=== PATIENT | female | born 1965 | race Caucasian/White ===

== ENCOUNTER 2017-06-09 06:49 | Emergency (ER) | payer OTHER ==
[~2017-06-09] VITALS: Ht 160 cm; Wt 45.4 kg
[~2017-06-09 06:49] MED LIST: METO-304 PO; OMEP20CA10 PO; PROC10TA PO
[2017-06-09 06:57] VITALS: BP_SYST 166
[2017-06-09] MEDS ORDERED: NACL 0.9% 1,000 ML IV ONE (07:31)
[2017-06-09 07:34] LABS: MEAN CORPUSCULAR HEMOGLOBIN 31 pg (27-31)
[2017-06-09 07:38] LABS: CALCIUM 10.3 mg/dL (8.4-11.0); CREATININE 0.89 mg/dL (0.55-1.30); POTASSIUM 4.4 mmol/L (3.5-5.1)
[2017-06-09 07:39] LABS: HEMOGLOBIN 15.9 g/dL (12.0-16.0); MEAN CORPUSCULAR HGB CONC 33 % (32-36); MEAN CORPUSCULAR VOLUME 94 fL (79.0-98.0); PLATELET COUNT (AUTO) 221 K/uL (130-430); RED BLOOD CELL COUNT(AUTO) 5.11 MIL/uL (4.2-6.2); RED CELL DISTRIBUTION WIDTH 14.6 % (9.0-15.0); WHITE BLOOD COUNT (AUTO) 11.5 K/uL (4.8-10.8)
[2017-06-09 07:42] LABS: ALBUMIN 4.6 g/dL (3.4-4.8); TOTAL BILIRUBIN 1.1 mg/dL (0.0-1.0)
[2017-06-09] MEDS ORDERED: ONDANSETRON HCL 4 MG/2 ML VIAL IVP ONE ×2 (08:15→10:45)
[2017-06-09] MEDS ORDERED: HYDROmorphone 1 MG INJ. 1 MG/ML AMPUL IVP ONE ×2 (08:15→10:00)
[2017-06-09 08:17] LABS: BASOPHILS % (MANUAL) 0 % (0-2); EOSINOPHILS % (MANUAL) 0 % (0-7); LYMPHOCYTES % (MANUAL) 12 % (20-46); MONOCYTES % (MANUAL) 2 % (0-11)
[2017-06-09] MEDS ORDERED: KETOROLAC TROMETHAMINE 60 MG/2 ML VIAL IM ONE (09:15)
[2017-06-09] MEDS ORDERED: hydrALAZINE HCL 20 MG/ML VIAL IVP ONE (10:00)
[2017-06-09 10:08] LABS: BILIRUBIN,URINE NEGATIVE (NEGATIVE); BLOOD, URINE 1+ (NEGATIVE); CLARITY/URINE CLEAR (CLEAR); COLOR,URINE YELLOW (YELLOW); GLUCOSE,URINE NEGATIVE (NEGATIVE); KETONES,URINE 2+ (NEGATIVE); LEUKOCYTE ESTERASE ,URINE NEGATIVE (NEGATIVE); NITRITE, URINE NEGATIVE (NEGATIVE); PROTEIN URINE TRACE (NEGATIVE); UROBILINOGEN,URINE 0.2 (0.2-1.0)
[2017-06-09 10:15] LABS: BACTERIA,URINE FEW /HPF (None Seen); MUCUS,URINE None Seen /LPF (None Seen); RBC,URINE 0-3 /HPF (0-3); WBC,URINE 0-3 /HPF (0-3)
[2017-06-09 11:14] VITALS: BP_SYST 167
== END 2017-06-09 11:14 | disposition home or self-care (01) ==
LOC: SED 06:49
DX: K58.8 Other irritable bowel syndrome (principal); F11.20 Opioid dependence, uncomplicated; R10.11 Right upper quadrant pain; I10 Essential (primary) hypertension; Z90.49 Acquired absence of other specified parts of digestive tract; Z88.8 Allergy status to other drugs, medicaments and biological substances
CPT/HCPCS: 36415; 76700; 80053; 81000; 83690; 85007; 85027; 96361; 96372; 96374; 96375; 96376; 99285; J0360; J1170; J1885; J2405; J7030

== ENCOUNTER 2018-05-11 07:32 | Inpatient (IN) | payer OTHER, BC ==
[~2018-05-11] VITALS: Ht 160 cm; Wt 46.3 kg
[2018-05-11 07:32] VITALS: BP_SYST 159
[~2018-05-11 07:32] MED LIST changes: -METO-304 PO; +METO-540 PO; -PROC10TA PO; +PROC10TA13 PO
[2018-05-11] MEDS ORDERED: IBUPROFEN 800 MG TABLET PO ONE (07:45)
[2018-05-11] MEDS ORDERED: HYDROcodone/ACETAMIN 10-325 MG TAB PO ONE (07:45)
[2018-05-11 08:38] LABS: BASOPHILS # (AUTO) 0.1 K/uL (0.0-0.2); BASOPHILS % (AUTO) 0.6 % (0.0-2.0); EOSINOPHILS # (AUTO) 0.1 K/uL (0.0-0.4); EOSINOPHILS % (AUTO) 0.8 % (0.0-4.0); HEMATOCRIT 35.4 % (36-48); HEMOGLOBIN 12.1 g/dL (12.0-16.0); LYMPHOCYTES # (AUTO) 1.4 K/uL (1.0-5.5); LYMPHOCYTES % (AUTO) 8.3 % (20.5-51.5); MEAN CORPUSCULAR HEMOGLOBIN 32 pg (27-31); MEAN CORPUSCULAR HGB CONC 34 % (32-36); MEAN CORPUSCULAR VOLUME 94 fL (79.0-98.0); MONOCYTES # (AUTO) 0.5 K/uL (0.0-1.0); MONOCYTES % (AUTO) 3.2 % (1.7-9.3); NEUTROPHILS # (AUTO) 14.6 K/uL (1.8-7.7); NEUTROPHILS % (AUTO) 87.1 % (40.0-70.0); PLATELET COUNT (AUTO) 358 K/uL (130-430); RED BLOOD CELL COUNT(AUTO) 3.78 MIL/uL (4.2-6.2); RED CELL DISTRIBUTION WIDTH 13.3 % (9.0-15.0)
[2018-05-11 08:44] LABS: WHITE BLOOD COUNT (AUTO) 16.7 K/uL (4.8-10.8)
[2018-05-11 09:07] LABS: CALCIUM 9.5 mg/dL (8.4-11.0); CREATININE 0.91 mg/dL (0.55-1.30)
[2018-05-11 09:10] LABS: PROTHROMBIN TIME 9.9 SECS (9.5-12.5)
[2018-05-11 09:13] LABS: TOTAL BILIRUBIN 0.4 mg/dL (0.0-1.0)
[2018-05-11 09:30] LABS: POTASSIUM 2.8 mmol/L (3.5-5.1)
[2018-05-11] MEDS ORDERED: POTASSIUM CHLORIDE 20 MEQ/PKT PACKET PO ONE (09:45)
[2018-05-11] MEDS ORDERED: LEVOFLOXACIN 500 MG/D5W 100 ML IV ONE (09:45)
[2018-05-11] MEDS ORDERED: ACAM333T9 PO (10:03)
[2018-05-11] MEDS ORDERED: TRAZ-123 PO (10:03)
[2018-05-11] MEDS ORDERED: METO-442 PO (10:03)
[2018-05-11] MEDS ORDERED: GABA-529 PO (10:03)
[2018-05-11] MEDS ORDERED: PRO40 PO (10:03)
[2018-05-11] MEDS ORDERED: ATRMDI INH (10:03)
[2018-05-11] MEDS ORDERED: VIS50 PO (10:03)
[2018-05-11] MEDS ORDERED: MV-M1CAP15 PO (10:03)
[2018-05-11] MEDS ORDERED: ESCI10TA PO (10:03)
[2018-05-11] MEDS ORDERED: LOSA50TA3 PO (10:03)
[2018-05-11 10:08] LABS: LIPASE 121 U/L (73-393)
[2018-05-11 10:10] LABS: ALCOHOL, BLOOD < 3 mg/dL (<10)
[2018-05-11] MEDS ORDERED: MORPHINE 2 MG/ML INJ. SYRINGE IVP ONE (10:15)
[2018-05-11] MEDS ORDERED: IPRATROPIUM BROM 0.5 MG/2.5 ML VIAL.NEB (ATROVENT) INH PRN (10:45)
[2018-05-11] MEDS ORDERED: ALBUTEROL SULFATE 0.083% 2.5 MG/3 ML VIAL.NEB INH PRN (10:45)
[2018-05-11 10:53] VITALS: BP_SYST 145
[2018-05-11] MEDS: cefTRIAXone 1 GM in D5W 50 ML IV SCH (12:00)
[2018-05-11] MEDS ORDERED: methylPREDNISolone SOD SUCC/PF 62.5 MG/ML VIAL IVP ONE (12:00)
[2018-05-11 13:13] VITALS: BP_SYST 150
[2018-05-11] MEDS: IPRATROPIUM BROM 0.5 MG/2.5 ML VIAL.NEB (ATROVENT) INH SCH ×2 (13:13→18:27)
[2018-05-11] MEDS: ALBUTEROL SULFATE 0.083% 2.5 MG/3 ML VIAL.NEB INH SCH ×2 (13:13→18:27)
[2018-05-11 13:25] VITALS: BP_SYST 150
[2018-05-11] MEDS ORDERED: ENOXAPARIN SODIUM 40 MG/0.4 ML SYRINGE SUBCUT ONE (14:30)
[2018-05-11] MEDS ORDERED: HYDROcodone/ACETAMIN 5-325 MG TAB (NORCO/ VICODIN) PO PRN (14:45)
[2018-05-11] MEDS: GABAPENTIN 100 MG CAPSULE PO SCH ×2 (15:16→20:11)
[2018-05-11] MEDS: HYDROcodone/ACETAMIN 5-325 MG TAB (NORCO/ VICODIN) PO PRN ×2 (15:16→20:12)
[2018-05-11] MEDS: AZITHROMYCIN 500 MG in NS 250 ML IV SCH (15:24)
[2018-05-11] MEDS ORDERED: IOHEXOL 100 ML IV ONE (16:17)
[2018-05-11 16:58] VITALS: BP_SYST 145
[2018-05-11 20:00] VITALS: BP_SYST 155
[2018-05-11] MEDS: CITALOPRAM HYDROBROMIDE 20 MG TABLET PO SCH (20:12)
[2018-05-11] MEDS: traZODone HCL 50 MG TABLET (DESYREL) PO SCH (20:12)
[2018-05-11] MEDS: METOPROLOL TARTRATE 50 MG TABLET PO SCH (20:13)
[2018-05-11] MEDS: ONDANSETRON HCL 4 MG/2 ML VIAL IVP PRN (21:39)
[2018-05-11] MEDS: methylPREDNISolone SOD SUCC/PF 62.5 MG/ML VIAL IVP SCH (21:39)
[2018-05-12] VITALS (9 sets, daily range): BP systolic 130–184
[2018-05-12] MEDS: HYDROcodone/ACETAMIN 5-325 MG TAB (NORCO/ VICODIN) PO PRN ×4 (00:01→14:32)
[2018-05-12] MEDS: ALBUTEROL SULFATE 0.083% 2.5 MG/3 ML VIAL.NEB INH SCH ×4 (00:52→19:52)
[2018-05-12] MEDS: IPRATROPIUM BROM 0.5 MG/2.5 ML VIAL.NEB (ATROVENT) INH SCH ×4 (00:52→19:52)
[2018-05-12] MEDS: ONDANSETRON HCL 4 MG/2 ML VIAL IVP PRN ×3 (03:58→20:13)
[2018-05-12] MEDS: methylPREDNISolone SOD SUCC/PF 62.5 MG/ML VIAL IVP SCH ×3 (05:10→22:58)
[2018-05-12] MEDS: PANTOPRAZOLE SODIUM 40 MG TAB PO SCH (05:10)
[2018-05-12] MEDS: GABAPENTIN 100 MG CAPSULE PO SCH ×3 (08:39→20:12)
[2018-05-12] MEDS: LOSARTAN POTASSIUM 50 MG TABLET (COZAAR) PO SCH (08:40)
[2018-05-12] MEDS: METOPROLOL TARTRATE 50 MG TABLET PO SCH ×2 (08:41→20:12)
[2018-05-12] MEDS: ENOXAPARIN SODIUM 40 MG/0.4 ML SYRINGE SUBCUT SCH (08:47)
[2018-05-12] MEDS ORDERED: MORPHINE 2 MG/ML INJ. SYRINGE IVP ONE (09:00)
[2018-05-12 10:52] LABS: CALCIUM 9.8 mg/dL (8.4-11.0); CREATININE 0.74 mg/dL (0.55-1.30)
[2018-05-12 10:56] LABS: ALBUMIN 4.1 g/dL (3.4-4.8); TOTAL BILIRUBIN 0.6 mg/dL (0.0-1.0)
[2018-05-12 10:58] LABS: POTASSIUM 2.7 mmol/L (3.5-5.1)
[2018-05-12] MEDS: cefTRIAXone 1 GM in D5W 50 ML IV SCH (11:10)
[2018-05-12] MEDS ORDERED: IOHEXOL 100 ML IV ONE (11:28)
[2018-05-12] MEDS ORDERED: DIATR MEGLU/DIATRIZ SOD 30 ML SOLUTION PO ONE (11:29)
[2018-05-12] MEDS: MORPHINE 2 MG/ML INJ. SYRINGE IVP PRN ×3 (13:18→21:46)
[2018-05-12] MEDS: AZITHROMYCIN 500 MG in NS 250 ML IV SCH (13:19)
[2018-05-12] MEDS: cloNIDine HCL 0.1 MG TABLET PO PRN ×2 (14:28→20:12)
[2018-05-12] MEDS ORDERED: POTASSIUM CHLORIDE 40 MEQ, LIDOCAINE JECT 2% PF 100 MG 50 MG in NS 250 ML IV ONE (15:30)
[2018-05-12] MEDS: CITALOPRAM HYDROBROMIDE 20 MG TABLET PO SCH (20:12)
[2018-05-12] MEDS: traZODone HCL 50 MG TABLET (DESYREL) PO SCH (20:12)
[2018-05-13] MEDS: HYDROcodone/ACETAMIN 5-325 MG TAB (NORCO/ VICODIN) PO PRN ×3 (00:02→21:00)
[2018-05-13 00:06] VITALS: BP_SYST 148
[2018-05-13] MEDS: ALBUTEROL SULFATE 0.083% 2.5 MG/3 ML VIAL.NEB INH SCH ×4 (01:12→19:53)
[2018-05-13] MEDS: IPRATROPIUM BROM 0.5 MG/2.5 ML VIAL.NEB (ATROVENT) INH SCH ×4 (01:12→19:53)
[2018-05-13] MEDS: MORPHINE 2 MG/ML INJ. SYRINGE IVP PRN ×6 (01:44→22:19)
[2018-05-13] MEDS: PANTOPRAZOLE SODIUM 40 MG TAB PO SCH (05:32)
[2018-05-13] MEDS: methylPREDNISolone SOD SUCC/PF 62.5 MG/ML VIAL IVP SCH ×2 (05:32→21:04)
[2018-05-13] MEDS: ONDANSETRON HCL 4 MG/2 ML VIAL IVP PRN (05:32)
[2018-05-13 06:58] LABS: BASOPHILS % (AUTO) 0.1 % (0.0-2.0); HEMATOCRIT 37.8 % (36-48); HEMOGLOBIN 12.9 g/dL (12.0-16.0); LYMPHOCYTES # (AUTO) 0.8 K/uL (1.0-5.5); LYMPHOCYTES % (AUTO) 4.9 % (20.5-51.5); MEAN CORPUSCULAR HEMOGLOBIN 32 pg (27-31); MEAN CORPUSCULAR HGB CONC 34 % (32-36); MEAN CORPUSCULAR VOLUME 94 fL (79.0-98.0); MONOCYTES # (AUTO) 0.4 K/uL (0.0-1.0); MONOCYTES % (AUTO) 2.1 % (1.7-9.3); NEUTROPHILS # (AUTO) 15.6 K/uL (1.8-7.7); NEUTROPHILS % (AUTO) 92.9 % (40.0-70.0); PLATELET COUNT (AUTO) 351 K/uL (130-430); RED BLOOD CELL COUNT(AUTO) 4.04 MIL/uL (4.2-6.2); RED CELL DISTRIBUTION WIDTH 13.9 % (9.0-15.0); WHITE BLOOD COUNT (AUTO) 16.8 K/uL (4.8-10.8)
[2018-05-13 07:17] LABS: ALBUMIN 3.2 g/dL (3.4-4.8); CALCIUM 8.9 mg/dL (8.4-11.0); CREATININE 0.75 mg/dL (0.55-1.30); POTASSIUM 3.4 mmol/L (3.5-5.1); THYROID STIMULATING HORMONE 0.1 uIu/mL (0.34-4.82); TOTAL BILIRUBIN 0.5 mg/dL (0.0-1.0)
[2018-05-13 08:00] VITALS: BP_SYST 155
[2018-05-13] MEDS: LOSARTAN POTASSIUM 50 MG TABLET (COZAAR) PO SCH (08:33)
[2018-05-13] MEDS: GABAPENTIN 100 MG CAPSULE PO SCH ×3 (08:33→21:03)
[2018-05-13] MEDS: METOPROLOL TARTRATE 50 MG TABLET PO SCH ×2 (08:33→21:03)
[2018-05-13] MEDS: ENOXAPARIN SODIUM 40 MG/0.4 ML SYRINGE SUBCUT SCH (08:37)
[2018-05-13] MEDS ORDERED: ONDANSETRON HCL 4 MG/2 ML VIAL IVP PRN ×2 (10:30→11:45)
[2018-05-13] MEDS ORDERED: POTASSIUM CHLORIDE 20 MEQ TAB.PRT.SR PO ONE (10:30)
[2018-05-13] MEDS: cefTRIAXone 1 GM in D5W 50 ML IV SCH (11:00)
[2018-05-13] MEDS ORDERED: METOCLOPRAMIDE HCL 10 MG/2 ML VIAL IVP PRN (11:45)
[2018-05-13 12:43] VITALS: BP_SYST 129
[2018-05-13] MEDS: AZITHROMYCIN 500 MG in NS 250 ML IV SCH (13:00)
[2018-05-13 16:21] VITALS: BP_SYST 131
[2018-05-13 19:20] VITALS: BP_SYST 127
[2018-05-13] MEDS: CITALOPRAM HYDROBROMIDE 20 MG TABLET PO SCH (21:03)
[2018-05-13] MEDS: traZODone HCL 50 MG TABLET (DESYREL) PO SCH (21:17)
[2018-05-14] MEDS: IPRATROPIUM BROM 0.5 MG/2.5 ML VIAL.NEB (ATROVENT) INH SCH ×4 (01:15→19:43)
[2018-05-14] MEDS: ALBUTEROL SULFATE 0.083% 2.5 MG/3 ML VIAL.NEB INH SCH ×4 (01:15→19:43)
[2018-05-14] MEDS: MORPHINE 2 MG/ML INJ. SYRINGE IVP PRN ×5 (02:32→19:53)
[2018-05-14 07:29] LABS: BASOPHILS % (AUTO) 0.2 % (0.0-2.0); EOSINOPHILS % (AUTO) 0.1 % (0.0-4.0); HEMATOCRIT 36.4 % (36-48); HEMOGLOBIN 12.6 g/dL (12.0-16.0); LYMPHOCYTES # (AUTO) 0.9 K/uL (1.0-5.5); MEAN CORPUSCULAR HEMOGLOBIN 32 pg (27-31); MEAN CORPUSCULAR HGB CONC 35 % (32-36); MEAN CORPUSCULAR VOLUME 94 fL (79.0-98.0); MONOCYTES # (AUTO) 0.4 K/uL (0.0-1.0); MONOCYTES % (AUTO) 2.8 % (1.7-9.3); NEUTROPHILS # (AUTO) 14.4 K/uL (1.8-7.7); PLATELET COUNT (AUTO) 338 K/uL (130-430); RED CELL DISTRIBUTION WIDTH 13.7 % (9.0-15.0); WHITE BLOOD COUNT (AUTO) 15.7 K/uL (4.8-10.8)
[2018-05-14 07:39] LABS: ALBUMIN 3.2 g/dL (3.4-4.8); CALCIUM 8.9 mg/dL (8.4-11.0); CREATININE 0.8 mg/dL (0.55-1.30); POTASSIUM 4.6 mmol/L (3.5-5.1); TOTAL BILIRUBIN 0.4 mg/dL (0.0-1.0)
[2018-05-14 08:20] VITALS: BP_SYST 158
[2018-05-14] MEDS ORDERED: NA PHOS,M-B/NA PHOS,DI-BA 118 ML (FLEET ENEMA) RC ONE (08:30)
[2018-05-14] MEDS: HYDROcodone/ACETAMIN 5-325 MG TAB (NORCO/ VICODIN) PO PRN ×3 (09:20→18:18)
[2018-05-14] MEDS: methylPREDNISolone SOD SUCC/PF 62.5 MG/ML VIAL IVP SCH (09:22)
[2018-05-14] MEDS: METOPROLOL TARTRATE 50 MG TABLET PO SCH ×2 (09:24→20:58)
[2018-05-14] MEDS: POLYETHYLENE GLYCOL 3350, 17 GM/ POWD.PACK PO SCH ×2 (09:24→20:59)
[2018-05-14] MEDS: ENOXAPARIN SODIUM 40 MG/0.4 ML SYRINGE SUBCUT SCH (09:26)
[2018-05-14] MEDS: LOSARTAN POTASSIUM 50 MG TABLET (COZAAR) PO SCH (09:27)
[2018-05-14] MEDS: GABAPENTIN 100 MG CAPSULE PO SCH ×3 (09:27→20:58)
[2018-05-14] MEDS: PANTOPRAZOLE SODIUM 40 MG TAB PO SCH (09:27)
[2018-05-14] MEDS: cefTRIAXone 1 GM in D5W 50 ML IV SCH (11:17)
[2018-05-14] MEDS: AZITHROMYCIN 500 MG in NS 250 ML IV SCH (12:46)
[2018-05-14 13:04] VITALS: BP_SYST 155
[2018-05-14 13:29] LABS: NEUTROPHILS % (AUTO) 90.9 % (40.0-70.0)
[2018-05-14 16:46] VITALS: BP_SYST 150
[2018-05-14 20:00] VITALS: BP_SYST 148
[2018-05-14] MEDS: CITALOPRAM HYDROBROMIDE 20 MG TABLET PO SCH (20:57)
[2018-05-14] MEDS: methylPREDNISolone SOD SUCC 40 MG/ML VIAL IVP SCH (20:58)
[2018-05-14] MEDS: traZODone HCL 50 MG TABLET (DESYREL) PO SCH (20:58)
[2018-05-15] VITALS (7 sets, daily range): BP systolic 139–158
[2018-05-15] MEDS: cloNIDine HCL 0.1 MG TABLET PO PRN ×2 (00:11→11:23)
[2018-05-15] MEDS: MORPHINE 2 MG/ML INJ. SYRINGE IVP PRN ×5 (00:12→20:07)
[2018-05-15] MEDS: IPRATROPIUM BROM 0.5 MG/2.5 ML VIAL.NEB (ATROVENT) INH SCH ×4 (01:00→19:55)
[2018-05-15] MEDS: ALBUTEROL SULFATE 0.083% 2.5 MG/3 ML VIAL.NEB INH SCH ×4 (01:00→19:55)
[2018-05-15] MEDS ORDERED: SIMETHICONE 40 MG/0.6 ML ML ONE (06:58)
[2018-05-15] MEDS ORDERED: fentaNYL CITRATE/PF 100 MCG/2 ML AMP ONE (06:58)
[2018-05-15] MEDS: MIDAZOLAM HCL 5 MG/5 ML VIAL ONE ×4 (06:58→07:42)
[2018-05-15 07:07] LABS: PROTHROMBIN TIME 10.5 SECS (9.5-12.5)
[2018-05-15] MEDS: MEPERIDINE HCL/PF 100 MG/ML AMP ONE ×4 (07:14→07:42)
[2018-05-15] MEDS ORDERED: FLUCONAZOLE 200 MG TABLET (DIFLUCAN) PO ONE (08:00)
[2018-05-15] MEDS: PANTOPRAZOLE SODIUM 40 MG TAB PO SCH (08:58)
[2018-05-15] MEDS: GABAPENTIN 100 MG CAPSULE PO SCH ×2 (08:58→15:49)
[2018-05-15] MEDS: METOPROLOL TARTRATE 50 MG TABLET PO SCH (08:59)
[2018-05-15] MEDS: LOSARTAN POTASSIUM 50 MG TABLET (COZAAR) PO SCH (08:59)
[2018-05-15] MEDS: methylPREDNISolone SOD SUCC 40 MG/ML VIAL IVP SCH (09:00)
[2018-05-15] MEDS: POLYETHYLENE GLYCOL 3350, 17 GM/ POWD.PACK PO SCH (09:00)
[2018-05-15] MEDS: ENOXAPARIN SODIUM 40 MG/0.4 ML SYRINGE SUBCUT SCH (09:01)
[2018-05-15] MEDS: cefTRIAXone 1 GM in D5W 50 ML IV SCH (11:22)
[2018-05-15] MEDS: AZITHROMYCIN 500 MG in NS 250 ML IV SCH (12:40)
[2018-05-15] MEDS: HYDROcodone/ACETAMIN 5-325 MG TAB (NORCO/ VICODIN) PO PRN (12:47)
[2018-05-16] MEDS ORDERED: FLUCONAZOLE 100 MG TABLET (DIFLUCAN) PO SCH ×2 (09:00)
== END 2018-05-15 20:54 | disposition home or self-care (01) | DRG 871 ==
LOC: SED 07:32 → STU 09:53 → SMU 05-13 10:38
PROVIDERS: ADMIT Internal Medicine Hospice and Palliative Medicine; ATTEND Internal Medicine Hospice and Palliative Medicine
PROC: 0DD38ZX Extraction of Lower Esophagus, Via Natural or Artificial Opening Endoscopic, Diagnostic (ICD-10-PCS; 2018-05-15)
PROC: 0DB78ZX Excision of Stomach, Pylorus, Via Natural or Artificial Opening Endoscopic, Diagnostic (ICD-10-PCS; principal; 2018-05-15 07:30)
DX: A41.9 Sepsis, unspecified organism (principal); J18.9 Pneumonia, unspecified organism; J96.01 Acute respiratory failure with hypoxia; J44.0 Chronic obstructive pulmonary disease with (acute) lower respiratory infection; J44.1 Chronic obstructive pulmonary disease with (acute) exacerbation; K86.1 Other chronic pancreatitis; B37.81 Candidal esophagitis; E46 Unspecified protein-calorie malnutrition; I50.30 Unspecified diastolic (congestive) heart failure; Z68.1 Body mass index [BMI] 19.9 or less, adult; M54.9 Dorsalgia, unspecified; F17.210 Nicotine dependence, cigarettes, uncomplicated; F10.20 Alcohol dependence, uncomplicated; G89.4 Chronic pain syndrome; F32.9 Major depressive disorder, single episode, unspecified; M41.9 Scoliosis, unspecified; K29.00 Acute gastritis without bleeding; I11.0 Hypertensive heart disease with heart failure; Z91.048 Other nonmedicinal substance allergy status; Z79.899 Other long term (current) drug therapy; Z79.51 Long term (current) use of inhaled steroids; Z81.1 Family history of alcohol abuse and dependence; Z71.6 Tobacco abuse counseling; Z98.51 Tubal ligation status; Z79.891 Long term (current) use of opiate analgesic; Z98.82 Breast implant status; Z80.1 Family history of malignant neoplasm of trachea, bronchus and lung
CPT/HCPCS: 36415; 36600; 43239; 71045; 71275; 74018; 76700-TC; 80053; 80061; 82150-TC; 82550-TC; 82803-TC; 83690-TC; 83735-TC; 83880; 84443-TC; 84484; 84703; 85025; 85379; 85610-TC; 85730-TC; 87040-TC; 87081; 88160; 88305; 88312; 88313; 93005; 93306; 93970; 94640; 94760; 96365; 96375; 99285; G0482; J0456; J0696; J1030; J1650; J1956; J2175; J2250; J2270; J2405; J2930; J3010; J3480; J7050; J7060; J7613; Q9964; Q9967